=== PATIENT | male | born 1960 | race Hispanic/Latino ===

== ENCOUNTER 2021-07-31 13:17 | Outpatient (AMB) | payer BC, OTHER, SELFPAY ==
--- NOTE | 2021-07-31 13:20 | URONOTE_ITS ---
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 Is patient in pain?: No Allergy Allergies Sulfa (Sulfonamide Antibiotics) Allergy (Verified 07/31/21 13:23) hives, shortness of breath Home Meds Medication Reconciliation atorvastatin 80 mg tablet 80 mg PO QDAY 10/15/18 [History Confirmed 07/31/21] levothyroxine 50 mcg tablet (Synthroid) 50 mcg PO QDAY 10/15/18 [History Confirmed 07/31/21] lisinopril 20 mg-hydrochlorothiazide 12.5 mg tablet 1 tab PO QDAY 10/15/18 [History Confirmed 07/31/21] sertraline 100 mg tablet (Zoloft) 100 mg PO QDAY 10/15/18 [History Confirmed 07/31/21] testosterone 20.25 mg/1.25 gram (1.62 %) transdermal gel pump 2 pump TOPICAL QDAY 10/15/18 [History Confirmed 07/31/21] tamsulosin 0.4 mg capsule 0.4 mg PO QDAY 12/06/18 [History Confirmed 07/31/21] Office Procedures Uro Bladder Scan and Uro Flow My Supervising Practitioner for this visit is:: Mayelin Marie Bladder Scan and Uro Flow Completed?: Yes Diagnosis: BPH WITH LUTS N40.1 SLOW STREAM R39.12 Uro Level of Care Nursing/Assessment/Reassessment Patient Status: Established Patient Nursing Assessment/Reassessment: Update [facility] data in EMR, Vital Signs and Medication Reconciliation Coordination of Care: Comp Pt/Fam Ed for care Established Patient Point Assignment: 50 Procedure IM Injection: No Transrectal Ultrasound: No
[2021-07-31 13:22] VITALS: BP 148/75; PULSE 83; TEMP 36.2; BMI 30.2
== END 2021-07-31 13:32 | disposition home or self-care (01) ==
LOC: HODURO 13:17
PROVIDERS: PCP Family Medicine; Visit Provider Urology